=== PATIENT | male | born 1945 | race Caucasian/White ===

== ENCOUNTER 2017-11-03 13:54 | Emergency (ER) | payer OTHER ==
[~2017-11-03] VITALS: Ht 188 cm; Wt 126.1 kg
[2017-11-03 13:59] VITALS: BP_SYST 188
--- NOTE | 2017-11-03 16:42 | NUR ---
Patient to ER [facility] to [facility] for evaluation. Side rails up. Report given to Barak MILNER.
--- NOTE | 2017-11-03 16:42 | NUR ---
Assumed care of pt. Pt states that this afternoon he coughed and sneezed at the same time, then his nose began to bleed. No active bleeding noted at this time, but dry blood noted to left nares. Denies trauma to nose or hx of nosebleeds.
--- NOTE | 2017-11-03 16:45 | NUR ---
ER Dr. Lagos at bedside examining patient.
[2017-11-03 17:20] LABS: BASOPHILS # (AUTO) 0.1 K/uL (0.0-0.2); BASOPHILS % (AUTO) 1.7 % (0.0-2.0); EOSINOPHILS # (AUTO) 0.3 K/uL (0.0-0.4); EOSINOPHILS % (AUTO) 4.3 % (0.0-4.0); HEMATOCRIT 43.5 % (36-54); HEMOGLOBIN 14.7 g/dL (14.0-18.0); LYMPHOCYTES # (AUTO) 1.6 K/uL (1.0-5.5); LYMPHOCYTES % (AUTO) 22.1 % (20.5-51.5); MEAN CORPUSCULAR HEMOGLOBIN 32 pg (27-31); MEAN CORPUSCULAR HGB CONC 34 % (32-36); MEAN CORPUSCULAR VOLUME 94 fL (79.0-98.0); MONOCYTES # (AUTO) 0.5 K/uL (0.0-1.0); MONOCYTES % (AUTO) 6.8 % (1.7-9.3); NEUTROPHILS # (AUTO) 4.5 K/uL (1.8-7.7); NEUTROPHILS % (AUTO) 65.1 % (40.0-70.0); PLATELET COUNT (AUTO) 265 K/uL (130-430); RED BLOOD CELL COUNT(AUTO) 4.63 MIL/uL (4.2-6.2); RED CELL DISTRIBUTION WIDTH 12.9 % (9.0-15.0)
[2017-11-03 17:24] LABS: CALCIUM 10.2 mg/dL (8.4-11.0); CREATININE 0.88 mg/dL (0.55-1.30); POTASSIUM 4.2 mmol/L (3.5-5.1)
[2017-11-03 17:28] LABS: PROTHROMBIN TIME 9.8 SECS (9.5-12.5)
[2017-11-03 17:29] LABS: ALBUMIN 3.5 g/dL (3.4-4.8); TOTAL BILIRUBIN 0.2 mg/dL (0.0-1.0)
--- NOTE | 2017-11-03 17:51 | NUR ---
Patient given written and verbal discharge instructions and verbalizes understanding. ER MD discussed with patient the results and treatment provided. Patient in stable condition. ID arm band removed. Rx of Afrin Nasal [place] given. Patient educated on pain management and to follow up with PMD. Pain Scale 0. Opportunity for questions provided and answered. Medication side effect fact sheet provided.
[2017-11-03 17:55] VITALS: BP_SYST 148
== END 2017-11-03 17:55 | disposition home or self-care (01) ==
LOC: SED 13:54
DX: R04.0 Epistaxis (principal); R03.0 Elevated blood-pressure reading, without diagnosis of hypertension
CPT/HCPCS: 36415; 80053; 85025; 85610-TC; 85730-TC; 99284

== ENCOUNTER 2022-06-05 17:57 | Emergency (ER) | payer OTHER ==
[~2022-06-05] VITALS: Ht 188 cm; Wt 120.2 kg
[2022-06-05 18:00] VITALS: BP_SYST 134
--- NOTE | 2022-06-05 18:00 | NUR ---
Patient triaged and placed in waiting room. VSS and patient appears in no acute distress at this time. Accompanied by , awaiting available bed, and MD notified of need for MSE.
--- NOTE | 2022-06-05 19:16 | NUR ---
Called patient x 3,no answer. Patient left without being seen. No further treatment provided. ER MD aware.
== END 2022-06-05 19:16 | disposition left against medical advice (07) ==
LOC: SED 17:57
DX: I10 Essential (primary) hypertension (principal); Z53.21 Procedure and treatment not carried out due to patient leaving prior to being seen by health care provider

== ENCOUNTER 2022-06-07 09:30 | Emergency (ER) | payer OTHER ==
[~2022-06-07] VITALS: Ht 185.4 cm; Wt 119.3 kg
[2022-06-07 09:30] VITALS: BP_SYST 189
[2022-06-07 11:57] VITALS: BP_SYST 189
== END 2022-06-07 11:58 | disposition home or self-care (01) ==
LOC: SED 09:30
DX: S00.01XA Abrasion of scalp, initial encounter (principal); E11.9 Type 2 diabetes mellitus without complications; I10 Essential (primary) hypertension; Z79.899 Other long term (current) drug therapy; W18.30XA Fall on same level, unspecified, initial encounter; Y93.89 Activity, other specified; Y92.89 Other specified places as the place of occurrence of the external cause; Y99.8 Other external cause status
CPT/HCPCS: 70450-TC; 76376; 99284